=== PATIENT | female | born 1965 | race Caucasian/White ===

== ENCOUNTER 2020-11-23 09:14 | Emergency (ER) | payer MEDICAID ==
[~2020-11-23] VITALS: Ht 177.8 cm; Wt 90.9 kg
[2020-11-23] MEDS ORDERED: normal saline 1000ML IV soln IVB ONE (11:25)
[2020-11-23] MEDS ORDERED: LORazepam 2 mg/ml vial IV ONE (11:25)
[2020-11-23] MEDS ORDERED: dexamethasone sod phosphate 10mg/ml inj IV STA (11:25)
[2020-11-23] MEDS ORDERED: metoclopramide 5 mg/ml inj IV ONE (11:25)
[2020-11-23] MEDS ORDERED: ketorolac trometh. 30mg/ml inj. IV ONE (11:25)
[2020-11-23] MEDS ORDERED: SERT-433 PO (12:05)
[2020-11-23 13:36] VITALS: BP 133/89
== END 2020-11-23 14:09 | disposition home or self-care (01) ==
LOC: ER 09:14
DX: G43.909 Migraine, unspecified, not intractable, without status migrainosus (principal); R11.2 Nausea with vomiting, unspecified; I10 Essential (primary) hypertension; Z88.0 Allergy status to penicillin; Z88.8 Allergy status to other drugs, medicaments and biological substances; Z79.899 Other long term (current) drug therapy
CPT/HCPCS: 96374; 96375; 99284; J1100; J1885; J2060; J2765; J7030

== ENCOUNTER 2021-04-22 12:38 | Emergency (ER) | payer MEDICAID ==
[~2021-04-22] VITALS: Ht 177.8 cm; Wt 90.5 kg
[~2021-04-22 12:38] MED LIST: SERT-433 PO
[2021-04-22 14:17] LABS: EOSINOPHILS # (AUTO) 0.2 X10'3 (0-0.9); MEAN CORPUSCULAR VOLUME 89.7 FL (78-98); MONOCYTES # (AUTO) 0.6 X10'3 (0-0.9); NEUTROPHILS # (AUTO) 2.7 X10'3 (1.8-7.7); RED CELL DISTRIBUTION WIDTH 14.6 % (11.5-14.5)
[2021-04-22 14:19] LABS: BASOPHILS % (AUTO) 0.8 % (0-1); HEMATOCRIT 43.4 % (35.0-45.0); HEMOGLOBIN 14.9 g/dl (12.0-16.0); LYMPHOCYTES # (AUTO) 1.8 X10'3 (1.1-4.8); LYMPHOCYTES % (AUTO) 33.6 % (21-51); MEAN CORPUSCULAR HEMOGLOBIN 30.8 PG (27.0-31.0); MEAN CORPUSCULAR HGB CONC 34.3 g/dL (33.0-36.5); MEAN PLATELET VOLUME 9.1 FL (7.4-10.4); MONOCYTES % (AUTO) 11.8 % (2-12); NEUTROPHILS % (AUTO) 49.8 % (42-75); PLATELET COUNT 239 X10'3 (140-440); RED BLOOD COUNT 4.84 X10'6 (4.20-5.60); WHITE BLOOD COUNT 5.4 X10'3 (4.5-11.0)
[2021-04-22 14:44] LABS: ALANINE AMINOTRANSFERASE 20 U/L (12-78); ALBUMIN/GLOBULIN RATIO 1.1 (1.1-1.5); ALKALINE PHOSPHATASE 107 IU/L (46-116); ANION GAP 11 (8-16); ASPARTATE AMINO TRANSFERASE 10 U/L (10-37); BILIRUBIN,TOTAL 0.4 MG/DL (0.1-1.0); BLOOD UREA NITROGEN 12 MG/DL (7-18); BUN/CREATININE RATIO 14.6 (6.6-38.0); CHLORIDE 106 MMOL/L (99-107); CREATININE 0.82 MG/DL (0.40-0.90); GLUCOSE 105 MG/DL (70-104); POTASSIUM 3.8 MMOL/L (3.5-5.1); SODIUM 143 MMOL/L (135-145); TOTAL CARBON DIOXIDE 25.9 MMOL/L (24-32); TOTAL PROTEIN 7.8 G/DL (6.4-8.2); eGFR 73 ML/MIN
[2021-04-22] MEDS ORDERED: iohexol 300mg/ml 100ml inj. ONE (16:40)
[2021-04-22] MEDS ORDERED: ondansetron 4mg rapidly disintigrating tab PO ONE (16:55)
--- NOTE | 2021-04-22 17:03 | NUR ---
pt to receive iv antibiotics per Naomi Pham,piv started to right ac.
[2021-04-22] MEDS ORDERED: CefTRIAXone/D5W-Rocephin 1gm 50 ML IV ONE (17:35)
[2021-04-22] MEDS ORDERED: vancomycin/NS 1 GM ADD-VANTAGE 250 ML IV ONE (17:35)
[2021-04-22] MEDS ORDERED: normal saline 1000ML IV soln IVB ONE (17:35)
[2021-04-22] MEDS ORDERED: SULF1TAB49 PO (18:50)
[2021-04-22] MEDS ORDERED: CEFD300C3 PO (18:50)
[2021-04-22] MEDS ORDERED: ondansetron/PF 4mg/2ml inj IV ONE (19:25)
[2021-04-22] MEDS ORDERED: HYDROcodone/acetaminophen 5mg/325mg tablet PO ONE (19:40)
[2021-04-22 21:23] VITALS: BP 116/83
== END 2021-04-22 21:24 | disposition home or self-care (01) ==
LOC: ER 12:38
DX: L03.213 Periorbital cellulitis (principal); G43.909 Migraine, unspecified, not intractable, without status migrainosus; Z88.0 Allergy status to penicillin; Z79.899 Other long term (current) drug therapy; Z88.6 Allergy status to analgesic agent
CPT/HCPCS: 36415; 70486; 80053; 83605; 84145; 85025; 87040; 96365; 96366; 96368; 96375; 99285; J0696; J2405; J3370; J7030; Q9967

== ENCOUNTER 2023-01-24 10:32 | Emergency (ER) | payer MEDICAID ==
[~2023-01-24] VITALS: Ht 177.8 cm; Wt 94.1 kg
[2023-01-24 10:51] VITALS: TEMP 98
[2023-01-24 11:25] LABS: BASOPHILS % (AUTO) 0.2 % (0-1); EOSINOPHILS % (AUTO) 0.6 % (0-6); HEMATOCRIT 36.1 % (35.0-45.0); HEMOGLOBIN 11.8 g/dl (12.0-16.0); LYMPHOCYTES # (AUTO) 0.8 X10'3 (1.1-4.8); LYMPHOCYTES % (AUTO) 9.9 % (21-51); MEAN CORPUSCULAR HEMOGLOBIN 30.7 PG (27.0-31.0); MEAN CORPUSCULAR HGB CONC 32.8 g/dL (33.0-36.5); MEAN CORPUSCULAR VOLUME 93.8 FL (78-98); MEAN PLATELET VOLUME 9.1 FL (7.4-10.4); MONOCYTES # (AUTO) 0.9 X10'3 (0-0.9); MONOCYTES % (AUTO) 10.5 % (2-12); NEUTROPHILS # (AUTO) 6.5 X10'3 (1.8-7.7); NEUTROPHILS % (AUTO) 78.8 % (42-75); PLATELET COUNT 189 X10'3 (140-440); RED BLOOD COUNT 3.85 X10'6 (4.20-5.60); RED CELL DISTRIBUTION WIDTH 14.2 % (11.5-14.5); WHITE BLOOD COUNT 8.2 X10'3 (4.5-11.0)
[2023-01-24 11:35] LABS: ALANINE AMINOTRANSFERASE 32 U/L (12-78); ALBUMIN 2.7 G/DL (3.4-5.0); ALBUMIN/GLOBULIN RATIO 0.6 (1.1-1.5); ALKALINE PHOSPHATASE 74 IU/L (46-116); ANION GAP 9 (8-16); ASPARTATE AMINO TRANSFERASE 27 U/L (10-37); BILIRUBIN,TOTAL 0.5 MG/DL (0.1-1.0); BLOOD UREA NITROGEN 16 MG/DL (7-18); BUN/CREATININE RATIO 15.8 (10.0-20.0); CALCIUM 8.9 MG/DL (8.5-10.1); CHLORIDE 102 MMOL/L (99-107); CREATININE 1.01 MG/DL (0.40-0.90); GLUCOSE 128 MG/DL (70-104); POTASSIUM 3.5 MMOL/L (3.5-5.1); SODIUM 135 MMOL/L (135-145); TOTAL CARBON DIOXIDE 23.9 MMOL/L (24-32); TOTAL PROTEIN 7.3 G/DL (6.4-8.2); eCRCL 67 ML/MIN; eGFR 57 ML/MIN
[2023-01-24 11:43] LABS: PRO BRAIN NATRIURETIC PEPTIDE 265 PG/ML (0-125)
--- NOTE | 2023-01-24 17:37 | NUR ---
pt in alot of pain with head ache 8/10 pain pt states she is starving and chest pain is 7/10
[2023-01-24 18:45] VITALS: BP 128/74; PULSE 80; RESP 15; O2SAT 95
[2023-01-24] MEDS ORDERED: azithromycin 250mg tablet PO ONE (18:45)
[2023-01-24] MEDS ORDERED: predniSONE 20 mg tablet PO ONE (18:45)
[2023-01-24] MEDS ORDERED: AZIT-164 PO (18:48)
[2023-01-24] MEDS ORDERED: ALBU8HFA PO (18:48)
[2023-01-24] MEDS ORDERED: PRED20TA PO (18:48)
== END 2023-01-24 18:55 | disposition home or self-care (01) ==
LOC: ER 10:32
DX: J18.9 Pneumonia, unspecified organism (principal); G43.909 Migraine, unspecified, not intractable, without status migrainosus; Z88.0 Allergy status to penicillin; Z79.899 Other long term (current) drug therapy
CPT/HCPCS: 36415; 71045; 80053; 82948; 83880; 84484; 85025; 93005; 99285; J7512

== ENCOUNTER 2023-10-17 08:10 | Emergency (ER) | payer OTHER, MEDICAID ==
[~2023-10-17] VITALS: Ht 177.8 cm; Wt 84.1 kg
[2023-10-17 08:11] VITALS: BP 105/65; PULSE 76; TEMP 97.8; O2SAT 96
[2023-10-17] MEDS: HYDROcodone/acetaminophen 10/325mg tab PO ONE (11:09)
[2023-10-17] MEDS: ondansetron 4mg rapidly disintigrating tab PO ONE (11:09)
[2023-10-17 11:10] VITALS: RESP 18
[2023-10-17] MEDS: ketorolac tromethamine 15mg/ml inj. IM ONE (11:10)
[2023-10-17] MEDS ORDERED: HYDR-3965 PO (11:37)
[2023-10-17] MEDS ORDERED: ONDA8TAB13 PO (11:37)
== END 2023-10-17 11:45 | disposition home or self-care (01) ==
LOC: ER 08:11
DX: S92.322A Displaced fracture of second metatarsal bone, left foot, initial encounter for closed fracture (principal); S92.332A Displaced fracture of third metatarsal bone, left foot, initial encounter for closed fracture; S92.342A Displaced fracture of fourth metatarsal bone, left foot, initial encounter for closed fracture; S92.352A Displaced fracture of fifth metatarsal bone, left foot, initial encounter for closed fracture; G43.909 Migraine, unspecified, not intractable, without status migrainosus; Z88.0 Allergy status to penicillin; Z91.041 Radiographic dye allergy status; Z79.899 Other long term (current) drug therapy; X58.XXXA Exposure to other specified factors, initial encounter; Y93.89 Activity, other specified; Y92.89 Other specified places as the place of occurrence of the external cause; Y99.8 Other external cause status
CPT/HCPCS: 73630; 96372; 99284; J1885; L4360

== ENCOUNTER 2025-01-11 15:23 | Outpatient (CLI) | payer MEDICAID, OTHER ==
[~2025-01-11 15:23] MED LIST changes: +ONDA-245 PO
--- NOTE | 2025-01-11 16:07 | RADIOLOGY REPORT ---
MRI lumbar spine HISTORY: LUMBAGO WITH SCIATICA, RIGHT SIDE TECHNIQUE: MR was performed with a surface coil at 1.5 T magnet. Sagittal, axial and coronal T1 and T 2-weighted images were obtained. FINDINGS: Lumbar vertebrae normal in height signal intensity and alignment. L1-2 no narrowing of the central canal and neural foramina L2-3 loss of disc height and signal intensity. Broad-based 2 mm disc bulge L3-4 loss of disc height and signal intensity. Broad-based 2 mm disc bulge L4-5 no narrowing of the central canal and neural foramina L5-S1 no narrowing of the central canal or neural foramina Cord ends at T12-L1 and is normal in appearance. IMPRESSION: 1. There are broad-based 2 mm disc bulges at L2-3 and L3-No evidence of nerve root compression
== END 2025-01-11 23:59 | disposition home or self-care (01) ==
LOC: MRI02 15:23
PROVIDERS: ATTEND Nurse Practitioner Occupational Health
DX: M51.17 Intervertebral disc disorders with radiculopathy, lumbosacral region (principal)
CPT/HCPCS: 72148